=== PATIENT | male | born 1940 | race Two or more races ===

== ENCOUNTER → 2024-03-28 | Outpatient (CLI) | payer MEDICARE, SELFPAY ==
[2024-03-28 12:04] LABS: Collection Type, Urine Clean Catch; Squamous Epithelial Cell,Urine 0 /hpf (0-5)
[2024-03-28 12:15] LABS: Basophils % (Auto) 1 % (0-2.5); Eosinophils # (Auto) 0.2 Thou/mm3 (0.0-0.5); Eosinophils % (Auto) 2 % (0-10); Hematocrit 42.7 % (41.0-53.0); Hemoglobin 14.1 g/dL (13.5-16.0); Immature Granulocytes % (Auto) 0 % (0-0); Immature Granulocytes Auto 0.03 Thou/mm3 (0.00-0.00); Lymphocytes # (Auto) 1.3 Thou/mm3 (1.0-4.8); Lymphocytes % (Auto) 18 % (10-50); Mean Corpuscular Hemoglobin 30.3 pg (25.0-35.0); Mean Corpuscular Volume 92 fL (80-100); Monocytes # (Auto) 0.7 Thou/mm3 (0.0-0.8); Monocytes % (Auto) 10 % (0-12); Neutrophils # (Auto) 4.8 Thou/mm3 (1.8-7.7); Neutrophils % (Auto) 69 % (37-80); Nucleated Red Blood Cell % 0 /100 WBC (0); Platelet Count 290 Thou/mm3 (140-440); RDW Standard Deviation 47.8 fL (35.1-43.9); Red Blood Count 4.65 Miln/mm3 (4.50-5.90)
[2024-03-28 12:31] LABS: Bilirubin,Urine Negative (Negative); Blood,Urine Negative (Negative); Clarity,Urine Clear (Clear/Hazy); Color,Urine Lt-Yellow (Lt Yel-Yel); Glucose, Urine Negative (Negative); Ketones,Urine Negative (Negative); Leukocyte Esterase,Urine Negative (Negative); Nitrite,Urine Negative (Negative); Protein,Urine Negative (Neg - Trace); RBC,Urine 2 /hpf (0-3); Specific Gravity,Urine 1.018 (1.001-1.035); Urobilinogen,Urine Negative mg/dL (0.0-1.0); WBC,Urine < 1 /hpf (0-5)
[2024-03-28 12:48] LABS: Alanine Aminotransferase 15 U/L (10-49); Albumin, Serum 4.3 gm/dL (3.4-4.8); Albumin/Globulin Ratio 1.7 (1.2-2.2); Alkaline Phosphatase 63 U/L (46-116); Anion Gap 11 (7-16); Aspartate Amino Transferase 10 U/L (0-34); BUN/Creatinine Ratio 13 Ratio (12-20); Bilirubin,Total 0.5 mg/dL (0.3-1.2); Blood Urea Nitrogen 18 mg/dL (9-23); Calcium 9.9 mg/dL (8.3-10.6); Calcium (Corrected) 9.9 mg/dL (8.5-10.1); Carbon Dioxide 26.8 mMol/L (20.0-31.0); Cardiac Risk Estimate 2.5 RATIO (4.0-6.7); Chloride 102 mMol/L (98-107); Cholesterol 98 mg/dL (132-200); Creatinine (Component) 1.4 mg/dL (0.6-1.3); Globulin 2.5 gm/dL (2.3-3.5); Glucose 107 mg/dL (74-106); HDL Cholesterol 40 mg/dL (40-60); LDL Cholesterol,Calculated 12 mg/dL (0-130); Osmolality,Calculated 281 (275-295); Potassium 4.4 mMol/L (3.4-5.1); Sodium 140 mMol/L (136-145); Thyroid Stimulating Hormone 2.78 uIU/mL (0.55-4.78); Total Protein 6.8 gm/dL (5.7-8.2); Triglycerides 232 mg/dL (30-150); Uric Acid 6.1 mg/dL (3.7-9.2); eGFR 49 See Note
== END | disposition home or self-care (01) ==
PROVIDERS: PCP Family Medicine; Referring Provider Family Medicine; Visit Provider Family Medicine
DX: Z00.00 Encounter for general adult medical examination without abnormal findings (principal); I12.9 Hypertensive chronic kidney disease with stage 1 through stage 4 chronic kidney disease, or unspecified chronic kidney disease; N18.31 Chronic kidney disease, stage 3a; I25.10 Atherosclerotic heart disease of native coronary artery without angina pectoris; E78.2 Mixed hyperlipidemia; E79.0 Hyperuricemia without signs of inflammatory arthritis and tophaceous disease
CPT/HCPCS: 36415; 80053; 80061; 81001; 84443; 84550; 85025

== ENCOUNTER 2024-05-02 13:15 | Outpatient (AMB) | payer MEDICARE, BC, SELFPAY ==
[2024-05-02 13:53] VITALS: BP 124/72; PULSE 89; RESP 17; TEMP 36.8; O2SAT 93; BMI 29.9
--- NOTE | 2024-05-02 13:53 | PD.ORTHCLVIS ---
Vital signs 05/02/24 13:53 05/02/24 14:05 Height 1.7 m Height Method Stated Weight 86.863 kg Weight Measurement Method Standing Scale BMI 29.9 BP 124/72 124/72 Blood Pressure Source Automatic Cuff Blood Pressure Location Left Upper Arm Position Sitting Respiration 17 17 Pulse 89 89 Pulse Source Monitor Temp 98.3 F 98.3 F Temp Source Temporal Artery Scan Pulse Oximetry (%) 93 L 93 L Oxygen Delivery Method Room Air Med/Allergies Allergies & Medications Allergies naproxen Allergy (Mild, Verified 05/02/24 13:55) LIGHTHEADEDNESS, SWEATY, WEIRD-FEELINGS Assessment and Plan Advanced Care Planning Discussion Advance care planning discussed with:: patient Office Procedures GNS Level of Care Nursing/Assessment Patient Status: Initial/New Patient Nursing Assessment/Reassesment: Medication Reconciliation, Update PMH in EMR and Vital Signs Coordination of Care: Complex Care and Chronic Disease 1-5, Education Complex Pt/Fam, Consent,records obtained, informed consent, 1 Ins Authorization, Lab and Imaging orders, Results/Orders obtained and Staff clarify orders New Patient Charge New Patient Point Assignment: 1124 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 ([id number]) MA Intake Visit Data Collection New Patient or Established: New Patient (never been to [facility]) Seen by Clinical Staff ONLY (RN/MA): No Delimer Required: No PCP or OBGYN visit in last 3 months: Yes Hx Now: No Do You Feel Safe at Home: Yes Authorities Contacted: N/A Questionairres Past Medical History Past Medical History Have you ever been diagnosed with any of the following: Neurological Problems Cerebrovascular Accident (CVA): No Transient Ischemic Attacks (TIA): No Dementia: No Alzheimer's Disease: No Parkinson's Disease: No Brain Tumor: No Meningitis: No Seizures: No Epilepsy: No Multiple Sclerosis: No Cerebral Palsy: No Amyotrophic Lateral Sclerosis (ALS/Yue Gehrig's): No Guillain-Starke Syndrome: No Spina Bifida: No Paralysis: No Peripheral Neuropathy: No Zabala's Palsy: No Subdural Hematoma: No Migraine: No Head Trauma: No Spinal Cord Injury: No Traumatic Brain Injury: No Cardiology Problems Myocardial Infarction: No Cardiac Arrhythmia: Yes Atrial Fibrillation: No Angina: No Heart Murmur: No Coronary Artery Disease: No Atherosclerotic Heart Disease: Yes Peripheral Vascular Disease: No Hypercholesterolemia: Yes Aneurysm: No Congestive Heart Failure: No Congenital Heart Disease: No Valvular Heart Disease: No Rheumatic Fever: No Cardiomyopathy: No Edema: No Pericarditis: No Cellulitis: No Deep Vein Thrombosis: No Hypertension: Yes Hypotension: No Varicose Veins: No Respiratory Problems Chronic Obstructive Pulmonary Disease (COPD): No Asthma: No Bronchitis: No Emphysema: No Pneumonia: No Pulmonary Fibrosis: No Tuberculosis: No Pulmonary Embolism: No Pulmonary Edema: No Sleep Apnea: No Smoking: No Smoking Cessation Counseling: No Smoking Exposure: No Stomache/Intestinal Problems Hepatitis: No Cirrhosis: No Pancreatitis: No Celiac Disease: No Golden's Esophagus: No Colitis: No Ulcerative Colitis: No Diverticulitis: No Diverticulosis: No Ulcer: No Irritable Bowel: No Crohn's Disease: No Obstructive Bowel: No Hiatal Hernia: No Hemorrhoids: Yes Obesity: Yes Genital/Urinary Problems Renal Disease: No Kidney Stones: No Polycystic Kidney Disease: No Neurogenic Bladder: No Inguinal Hernia: No Dialysis: No Benign Prostatic Hyperplasia: Yes (pt denies) Reproductive Problems Fibroids: No Genital Herpes: No Gonorrhea: No Syphilis: No Testicular Cancer: No Musculoskeletal Problems Muscular Dystrophy: No Myasthenia Gravis: No Marfan's Syndrome: No Arthritis: Yes Rheumatoid Arthritis: No Osteoporosis: No Degenerative Disk Disease: No Gout: No Scoliosis: No Carpal Tunnel Syndrome: No Fibromyalgia: No Fractures: No Degenerative Joint Disease: No Osteomyelitis: No Poliovirus: No Head,Eye,Nose,Throat Problems Cataracts: Yes (ronald. eyes) Glaucoma: No Blind: No Retinal Detachment: No Macular Degeneration: No Chronic Ear Infections: No Deafness: No Eye Prosthesis: No Endocrine Problems Diabetes Mellitus Type 1: No Diabetes Mellitus Type 2: No Hypoglycemia: No Braulio's Syndrome: No [place]'s Disease: No Hyperthyroidism: No Hypothyroidism: No Parathyroid Disease: No Pituitary Disease: No Systemic Lupus Erythematosus: No Syndrome of Inappropriate Antidiuretic Hormone: No Adrenal Disease: No Graves' Disease: No Blood Problems Anemia: No Leukemia: No Hemophilia: No Thalassemia: No Sickle Cell Disease: No Clotting Problems: No Psychologic Problems Schizophrenia: No Recreational Drug Use: No Bipolar Disorder: No Depression: No Anxiety: Yes Behavior Problems: No Self-Mutilation: No Attention Deficit Disorder: No Attention Deficit Hyperactivity Disorder: No Depression: No Post Traumatic Stress Disorder: No Eating Disorder: No Other Problems Hospitalization: No Down Syndrome: No Autism: No Developmental Delay: No Shingles: No Falls: No Blood Transfusions: No Anesthesia Reactions: No Organ Transplant: No Chemotherapy: No Radiation Therapy: No Hyperbaric Therapy: No MRSA: No VRSA: No Vancomycin-Resistant Enterococci: No Chicken Pox: Yes Measles: Yes Mumps: Yes Pertussis: Yes Clostridium Difficile: No Cancer: No Surgical History Carotid Endarterectomy: No Coronary Artery Bypass Graft: No Valve Replacement: No Pacemaker: Yes Thyroidectomy: No Subjective Visit Visit for: new patient and knee (RT KNEE PAIN ) Immunization / Flu Flu Vaccine in the Last 12 Months: Yes Flu Vaccine Exclusion Criteria: Already Received Pain Pain level (0-10): 6 Pain duration: 1 MONTH Pain location: outside (lateral) Pain timing: increases with activity (WALKING ) Ambulatory data Ambulatory device: none Treatments Number of previous injections: 1 (2 MONTH AGO) Improvement with previous injections: No Number of Physical Therapy sessions: 0 Improvement with NSAIDS: n/a Review of Systems Review of Systems: All systems negative unless otherwise noted in HPI.
--- NOTE | 2024-05-02 13:57 | XR_ITS ---
Examination: Lumbar spine 3 views Technique one AP lateral coned lateral lower lumbar spine 3 views Exam date and time: 27/06/2024 1419 hours INDICATIONS: Lower back pain beginning one week ago. FINDINGS: Adequate alignment lumbar vertebral bodies on the lateral view Advanced diffuse lumbar degenerative disc disease No lumbar fracture Prominent lumbar spondylosis Prominent facet arthropathy IMPRESSION: Advanced diffuse lumbar degenerative disc disease with significant spinal stenosis
--- NOTE | 2024-05-02 14:03 | PD.ORTHCLVIS ---
Vital signs 05/02/24 13:53 Height 1.7 m Height Method Stated Weight 86.863 kg Weight Measurement Method Standing Scale BMI 29.9 BP 124/72 Blood Pressure Source Automatic Cuff Blood Pressure Location Left Upper Arm Position Sitting Respiration 17 Pulse 89 Pulse Source Monitor Temp 98.3 F Temp Source Temporal Artery Scan Pulse Oximetry (%) 93 L Oxygen Delivery Method Room Air Med/Allergies Allergies & Medications Allergies naproxen Allergy (Mild, Verified 05/02/24 13:55) LIGHTHEADEDNESS, SWEATY, WEIRD-FEELINGS Exam Exam Patient is in no acute distress and is cooperative with the examination today. Breathing is nonlabored. In no respiratory distress. Patient has no paraspinal tenderness. Spinal deformity cannot be appreciated. The gait of the patient is nonantalgic Bilateral extremities were evaluated and demonstrates sensation intact to light touch. Palpable pedal pulses are present. No significant edema is present. Bilateral knees were examined and the patient has full strength and range of motion.. The left hip was examined. Patient was able to flex to 90 degrees, adduct to 30 degrees, abduct to 40 degrees, internally rotate to 20 degrees, and externally rotate to 20 degrees. Patient has a negative logroll. Stinchfield is negative. The patient is nontender diffusely to touch. The right hip was examined. Patient was able to flex to 90 degrees, adduct to 30 degrees, abduct to 40 degrees, internally rotate to 20 degrees, and externally rotate to 20 degrees. Patient has a negative logroll. The stinchfield is negative. Right knee is nontender to palpation. Range of motion is 0 to 110 degrees Right knee and hip films were reviewed. This is [facility] This demonstrates preserved hip and knee joint spaces. There is no osteophytes. He does have calcified vessels. Assessment and Plan Problem List (1) Vascular claudication: Status: Acute Plan: Patient is an 84-year-old male who describes symptoms of vascular claudication with bilateral leg pain worse on the right. We discussed with him his symptoms are most consistent with vascular claudication versus spinal stenosis. We will get an MRI and x-rays to evaluate the spine. Fortunately his hip and knee look great. The hip and knee exam are also quite benign. 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 ([id number]) Questionairres Past Medical History Past Medical History Have you ever been diagnosed with any of the following: Neurological Problems Cerebrovascular Accident (CVA): No Transient Ischemic Attacks (TIA): No Dementia: No Alzheimer's Disease: No Parkinson's Disease: No Brain Tumor: No Meningitis: No Seizures: No Epilepsy: No Multiple Sclerosis: No Cerebral Palsy: No Amyotrophic Lateral Sclerosis (ALS/Yue Gehrig's): No Guillain-Kenvil Syndrome: No Spina Bifida: No Paralysis: No Peripheral Neuropathy: No Zabala's Palsy: No Subdural Hematoma: No Migraine: No Head Trauma: No Spinal Cord Injury: No Traumatic Brain Injury: No Cardiology Problems Myocardial Infarction: No Cardiac Arrhythmia: Yes Atrial Fibrillation: No Angina: No Heart Murmur: No Coronary Artery Disease: No Atherosclerotic Heart Disease: Yes Peripheral Vascular Disease: No Hypercholesterolemia: Yes Aneurysm: No Congestive Heart Failure: No Congenital Heart Disease: No Valvular Heart Disease: No Rheumatic Fever: No Cardiomyopathy: No Edema: No Pericarditis: No Cellulitis: No Deep Vein Thrombosis: No Hypertension: Yes Hypotension: No Varicose Veins: No Respiratory Problems Chronic Obstructive Pulmonary Disease (COPD): No Asthma: No Bronchitis: No Emphysema: No Pneumonia: No Pulmonary Fibrosis: No Tuberculosis: No Pulmonary Embolism: No Pulmonary Edema: No Sleep Apnea: No Smoking: No Smoking Cessation Counseling: No Smoking Exposure: No Stomache/Intestinal Problems Hepatitis: No Cirrhosis: No Pancreatitis: No Celiac Disease: No Golden's Esophagus: No Colitis: No Ulcerative Colitis: No Diverticulitis: No Diverticulosis: No Ulcer: No Irritable Bowel: No Crohn's Disease: No Obstructive Bowel: No Hiatal Hernia: No Hemorrhoids: Yes Obesity: Yes Genital/Urinary Problems Renal Disease: No Kidney Stones: No Polycystic Kidney Disease: No Neurogenic Bladder: No Inguinal Hernia: No Dialysis: No Benign Prostatic Hyperplasia: Yes (pt denies) Reproductive Problems Fibroids: No Genital Herpes: No Gonorrhea: No Syphilis: No Testicular Cancer: No Musculoskeletal Problems Muscular Dystrophy: No Myasthenia Gravis: No Marfan's Syndrome: No Arthritis: Yes Rheumatoid Arthritis: No Osteoporosis: No Degenerative Disk Disease: No Gout: No Scoliosis: No Carpal Tunnel Syndrome: No Fibromyalgia: No Fractures: No Degenerative Joint Disease: No Osteomyelitis: No Poliovirus: No Head,Eye,Nose,Throat Problems Cataracts: Yes (ronald. eyes) Glaucoma: No Blind: No Retinal Detachment: No Macular Degeneration: No Chronic Ear Infections: No Deafness: No Eye Prosthesis: No Endocrine Problems Diabetes Mellitus Type 1: No Diabetes Mellitus Type 2: No Hypoglycemia: No Braulio's Syndrome: No Kwabena's Disease: No Hyperthyroidism: No Hypothyroidism: No Parathyroid Disease: No Pituitary Disease: No Systemic Lupus Erythematosus: No Syndrome of Inappropriate Antidiuretic Hormone: No Adrenal Disease: No Graves' Disease: No Blood Problems Anemia: No Leukemia: No Hemophilia: No Thalassemia: No Sickle Cell Disease: No Clotting Problems: No Psychologic Problems Schizophrenia: No Recreational Drug Use: No Bipolar Disorder: No Depression: No Anxiety: Yes Behavior Problems: No Self-Mutilation: No Attention Deficit Disorder: No Attention Deficit Hyperactivity Disorder: No Depression: No Post Traumatic Stress Disorder: No Eating Disorder: No Other Problems Hospitalization: No Down Syndrome: No Autism: No Developmental Delay: No Shingles: No Falls: No Blood Transfusions: No Anesthesia Reactions: No Organ Transplant: No Chemotherapy: No Radiation Therapy: No Hyperbaric Therapy: No MRSA: No VRSA: No Vancomycin-Resistant Enterococci: No Chicken Pox: Yes Measles: Yes Mumps: Yes Pertussis: Yes Clostridium Difficile: No Cancer: No Surgical History Carotid Endarterectomy: No Coronary Artery Bypass Graft: No Valve Replacement: No Pacemaker: Yes Thyroidectomy: No Subjective Immunization / Flu Flu Vaccine in the Last 12 Months: Yes Flu Vaccine Exclusion Criteria: Already Received History of Present Illness Chief complaint: Right buttocks and thigh pain Pollo is a pleasant 84-year-old male with pain that starts in his buttocks and radiates down to the thigh and medial aspect of the knee. He had a cortisone injection once before. He reports the knee pain is actually increased quite a bit. A lot of the pain is in the buttocks and side. He describes it as a dull pain. He also reports a feeling of coldness in both thighs. Review of Systems Review of Systems: All systems negative unless otherwise noted in HPI.
[2024-05-02 14:05] VITALS: BP 124/72; PULSE 89; RESP 17; TEMP 36.8; O2SAT 93
== END 2024-05-02 14:04 | disposition home or self-care (01) ==
PROVIDERS: PCP Family Medicine; Referring Provider Family Medicine; Supervising Provider Orthopaedic Surgery Adult Reconstructive Orthopaedic Surgery; Visit Provider Orthopaedic Surgery Adult Reconstructive Orthopaedic Surgery
DX: I73.9 Peripheral vascular disease, unspecified (principal); M79.605 Pain in left leg; M79.604 Pain in right leg; M51.369 Other intervertebral disc degeneration, lumbar region without mention of lumbar back pain or lower extremity pain; M48.061 Spinal stenosis, lumbar region without neurogenic claudication; I10 Essential (primary) hypertension; E78.00 Pure hypercholesterolemia, unspecified
CPT/HCPCS: 72100; 99204; G0463

== ENCOUNTER → 2024-06-03 | Outpatient (CLI) | payer MEDICARE, BC, SELFPAY | END | disposition home or self-care (01) | LOC: SMRI 13:28 | PROVIDERS: PCP Family Medicine; Referring Provider Orthopaedic Surgery Adult Reconstructive Orthopaedic Surgery; Visit Provider Orthopaedic Surgery Adult Reconstructive Orthopaedic Surgery | DX: Z53.8 Procedure and treatment not carried out for other reasons (principal) | CPT/HCPCS: 73721 ==

== ENCOUNTER 2024-06-06 14:53 | Outpatient (AMB) | payer MEDICARE, BC, SELFPAY ==
[2024-06-06 15:02] VITALS: BP 130/75; PULSE 66; RESP 17; TEMP 36.3; O2SAT 95; BMI 30.1
--- NOTE | 2024-06-06 15:02 | PD.ORTHCLVIS ---
Vital signs 06/06/24 15:02 Height 1.7 m Height Method Stated Weight 87.231 kg Weight Measurement Method Standing Scale BMI 30.1 BP 130/75 Blood Pressure Source Automatic Cuff Blood Pressure Location Right Upper Arm Position Sitting Respiration 17 Pulse 66 Pulse Source Monitor Temp 97.3 F Temp Source Temporal Artery Scan Pulse Oximetry (%) 95 Oxygen Delivery Method Room Air Med/Allergies Allergies & Medications Allergies naproxen Allergy (Mild, Verified 06/06/24 15:03) LIGHTHEADEDNESS, SWEATY, WEIRD-FEELINGS Medication Reconciliation tamsulosin 0.4 mg capsule 0.4 mg PO QDAY Prostate ##90 11/06/13 [History Confirmed 06/06/24] clopidogrel 75 mg tablet 75 mg PO DAILY 07/19/17 [History Confirmed 06/06/24] Held on 04/14/23. Instructions: Resume on 04/25/23. Hold for 10 days. evolocumab 140 mg/mL subcutaneous syringe (Repatha Syringe) 420 mg subcut QMONTH 07/19/17 [History Confirmed 06/06/24] allopurinol 100 mg tablet 100 mg PO QDAY 09/06/20 [History Confirmed 06/06/24] olmesartan 40 mg-amlodipine 5 mg-hydrochlorothiazide 12.5 mg tablet (Tribenzor) 1 tab PO QDAY 09/06/20 [History Confirmed 06/06/24] magnesium oxide 400 mg PO QDAY 12/09/22 [History Confirmed 06/06/24] hydroxyzine HCl 10 mg tablet 10 mg PO 1XD PRN Insomnia 04/11/23 [History Confirmed 06/06/24] pantoprazole 40 mg tablet,delayed release 40 mg PO DAILY 04/11/23 [History Confirmed 06/06/24] gabapentin 100 mg capsule 100 mg PO TID #60 caps 05/02/24 [Rx Confirmed 06/06/24] Exam Exam Patient is in no acute distress and is cooperative with the examination today. Breathing is nonlabored. In no respiratory distress. Patient has no paraspinal tenderness. Spinal deformity cannot be appreciated. The gait of the patient is nonantalgic Bilateral extremities were evaluated and demonstrates sensation intact to light touch. Palpable pedal pulses are present. No significant edema is present. Bilateral knees were examined and the patient has full strength and range of motion.. The left hip was examined. Patient was able to flex to 90 degrees, adduct to 30 degrees, abduct to 40 degrees, internally rotate to 20 degrees, and externally rotate to 20 degrees. Patient has a negative logroll. Stinchfield is negative. The patient is nontender diffusely to touch. The right hip was examined. Patient was able to flex to 90 degrees, adduct to 30 degrees, abduct to 40 degrees, internally rotate to 20 degrees, and externally rotate to 20 degrees. Patient has a negative logroll. The stinchfield is negative. Right knee is nontender to palpation. Range of motion is 0 to 110 degrees Right knee and hip films were reviewed. This is from [facility]. This demonstrates preserved hip and knee joint spaces. There is no osteophytes. He does have calcified vessels. We also looked at his spine films which demonstrates very calcified aorta. In addition, there are multilevel degenerative changes Assessment and Plan Problem List (1) Vascular claudication: Status: Acute Plan: Patient is an 84-year-old male who describes symptoms of vascular claudication with bilateral leg pain worse on the right. I do think he has vascular claudication versus spinal stenosis. We ordered an MRI but he currently needs to get clearance for his pacemaker before the MRI. I recommend workup and referral to a vascular surgeon for his vascular claudication versus a spine physician depending on what the MRI shows. He cannot get his MRI Yet due to issues with the pacemaker and questions about his compatibility. Advanced Care Planning Discussion Advance care planning discussed with:: patient Office Procedures GNS Level of Care Nursing/Assessment Patient Status: Established Patient Nursing Assessment/Reassesment: Medication Reconciliation, Update PMH in EMR and Vital Signs Coordination of Care: Complex Care and Chronic Disease 1-5, Consent,records obtained, informed consent, Education Simp Pt/Fam, Results/Orders obtained and Staff clarify orders Established Patient Charge Established Patient Point Assignment: 90 Established Patient Point Charge: EP Level 3 (80-115) MA Intake Visit Data Collection New Patient or Established: Established Patient (seen at [facility] within 3 years) Reason for Visit:: RT KNEE/HIP PAIN Seen by Clinical Staff ONLY (RN/MA): No 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 PCP or OBGYN visit in last 3 months: Yes Hx Now: No Do You Feel Safe at Home: Yes Authorities Contacted: N/A Questionairres Past Medical History Past Medical History Have you ever been diagnosed with any of the following: Neurological Problems Cerebrovascular Accident (CVA): No Transient Ischemic Attacks (TIA): No Dementia: No Alzheimer's Disease: No Parkinson's Disease: No Brain Tumor: No Meningitis: No Seizures: No Epilepsy: No Multiple Sclerosis: No Cerebral Palsy: No Amyotrophic Lateral Sclerosis (ALS/Yue Gehrig's): No Guillain-Kent Syndrome: No Spina Bifida: No Paralysis: No Peripheral Neuropathy: No Zabala's Palsy: No Subdural Hematoma: No Migraine: No Head Trauma: No Spinal Cord Injury: No Traumatic Brain Injury: No Cardiology Problems Myocardial Infarction: No Cardiac Arrhythmia: Yes Atrial Fibrillation: No Angina: No Heart Murmur: No Coronary Artery Disease: No Atherosclerotic Heart Disease: Yes Peripheral Vascular Disease: No Hypercholesterolemia: Yes Aneurysm: No Congestive Heart Failure: No Congenital Heart Disease: No Valvular Heart Disease: No Rheumatic Fever: No Cardiomyopathy: No Edema: No Pericarditis: No Cellulitis: No Deep Vein Thrombosis: No Hypertension: Yes Hypotension: No Varicose Veins: No Respiratory Problems Chronic Obstructive Pulmonary Disease (COPD): No Asthma: No Bronchitis: No Emphysema: No Pneumonia: No Pulmonary Fibrosis: No Tuberculosis: No Pulmonary Embolism: No Pulmonary Edema: No Sleep Apnea: No Smoking: No Smoking Cessation Counseling: No Smoking Exposure: No Stomache/Intestinal Problems Hepatitis: No Cirrhosis: No Pancreatitis: No Celiac Disease: No Golden's Esophagus: No Colitis: No Ulcerative Colitis: No Diverticulitis: No Diverticulosis: No Ulcer: No Irritable Bowel: No Crohn's Disease: No Obstructive Bowel: No Hiatal Hernia: No Hemorrhoids: Yes Obesity: Yes Genital/Urinary Problems Renal Disease: No Kidney Stones: No Polycystic Kidney Disease: No Neurogenic Bladder: No Inguinal Hernia: No Dialysis: No Benign Prostatic Hyperplasia: Yes (pt denies) Reproductive Problems Fibroids: No Genital Herpes: No Gonorrhea: No Syphilis: No Testicular Cancer: No Musculoskeletal Problems Muscular Dystrophy: No Myasthenia Gravis: No Marfan's Syndrome: No Arthritis: Yes Rheumatoid Arthritis: No Osteoporosis: No Degenerative Disk Disease: No Gout: No Scoliosis: No Carpal Tunnel Syndrome: No Fibromyalgia: No Fractures: No Degenerative Joint Disease: No Osteomyelitis: No Poliovirus: No Head,Eye,Nose,Throat Problems Cataracts: Yes (ornald. eyes) Glaucoma: No Blind: No Retinal Detachment: No Macular Degeneration: No Chronic Ear Infections: No Deafness: No Eye Prosthesis: No Endocrine Problems Diabetes Mellitus Type 1: No Diabetes Mellitus Type 2: No Hypoglycemia: No Braulio's Syndrome: No Kwabena's Disease: No Hyperthyroidism: No Hypothyroidism: No Parathyroid Disease: No Pituitary Disease: No Systemic Lupus Erythematosus: No Syndrome of Inappropriate Antidiuretic Hormone: No Adrenal Disease: No Graves' Disease: No Blood Problems Anemia: No Leukemia: No Hemophilia: No Thalassemia: No Sickle Cell Disease: No Clotting Problems: No Psychologic Problems Schizophrenia: No Recreational Drug Use: No Bipolar Disorder: No Depression: No Anxiety: Yes Behavior Problems: No Self-Mutilation: No Attention Deficit Disorder: No Attention Deficit Hyperactivity Disorder: No Depression: No Post Traumatic Stress Disorder: No Eating Disorder: No Other Problems Hospitalization: No Down Syndrome: No Autism: No Developmental Delay: No Shingles: No Falls: No Blood Transfusions: No Anesthesia Reactions: No Organ Transplant: No Chemotherapy: No Radiation Therapy: No Hyperbaric Therapy: No MRSA: No VRSA: No Vancomycin-Resistant Enterococci: No Chicken Pox: Yes Measles: Yes Mumps: Yes Pertussis: Yes Clostridium Difficile: No Cancer: No Surgical History Carotid Endarterectomy: No Coronary Artery Bypass Graft: No Valve Replacement: No Pacemaker: Yes Thyroidectomy: No Subjective Visit Visit for: follow up visit, hip (RT HIP) and knee (RT KNEE ) Immunization / Flu Flu Vaccine in the Last 12 Months: Yes Flu Vaccine Exclusion Criteria: Already Received History of Present Illness Chief complaint: Right buttocks and thigh pain Pollo is a pleasant 84-year-old male with pain that starts in his buttocks and radiates down to the thigh and medial aspect of the knee. He had a cortisone injection once before. He reports the knee pain is actually increased quite a bit. A lot of the pain is in the buttocks and side. He describes it as a dull pain. He also reports a feeling of coldness in both thighs. He did not get an MRI because of his pacemaker Personal History Red flag PMH: none Pain Pain level (0-10): 6 Pain duration: 2 MONTHS Pain location: groin and anterior Pain quality: tingling Pain timing: night and increases with activity Associated signs & symptoms: none Ambulatory data Ambulatory device: none Walking distance (blocks): 0 Walking distance (minutes): 0 Treatments Number of previous injections: 1 Improvement with previous injections: No Number of Physical Therapy sessions: 0 Improvement with NSAIDS: n/a Review of Systems Review of Systems: All systems negative unless otherwise noted in HPI.
== END 2024-06-06 15:11 | disposition home or self-care (01) ==
LOC: HODSRG 14:53
PROVIDERS: PCP Family Medicine; Referring Provider Family Medicine; Supervising Provider Orthopaedic Surgery Adult Reconstructive Orthopaedic Surgery; Visit Provider Orthopaedic Surgery Adult Reconstructive Orthopaedic Surgery
DX: I73.9 Peripheral vascular disease, unspecified (principal); Z95.0 Presence of cardiac pacemaker; I10 Essential (primary) hypertension; E78.00 Pure hypercholesterolemia, unspecified
CPT/HCPCS: 99213; G0463

== ENCOUNTER → 2024-06-27 | Outpatient (CLI) | payer MEDICARE, BC, SELFPAY ==
[2024-06-27 11:52] LABS: Albumin, Serum 4.2 gm/dL (3.4-4.8); Albumin/Globulin Ratio 1.6 (1.2-2.2); Alkaline Phosphatase 57 U/L (46-116); Anion Gap 10 (7-16); Aspartate Amino Transferase 15 U/L (0-34); BUN/Creatinine Ratio 10 Ratio (12-20); Bilirubin,Total 0.6 mg/dL (0.3-1.2); Blood Urea Nitrogen 13 mg/dL (9-23); Cardiac Risk Estimate 2.4 RATIO (4.0-6.7); Chloride 107 mMol/L (98-107); Cholesterol 90 mg/dL (132-200); Creatinine (Component) 1.3 mg/dL (0.6-1.3); Globulin 2.6 gm/dL (2.3-3.5); Glucose 121 mg/dL (74-106); HDL Cholesterol 38 mg/dL (40-60); Osmolality,Calculated 284 (275-295); Sodium 142 mMol/L (136-145); Total Protein 6.8 gm/dL (5.7-8.2); Uric Acid 5.6 mg/dL (3.7-9.2); eGFR 54 See Note
[2024-06-27 12:48] LABS: Alanine Aminotransferase 10 U/L (10-49); LDL Cholesterol,Calculated 11 mg/dL (0-130); Triglycerides 203 mg/dL (30-150)
== END | disposition home or self-care (01) ==
LOC: COPL 10:31
PROVIDERS: PCP Family Medicine; Referring Provider Family Medicine; Visit Provider Internal Medicine Cardiovascular Disease
DX: E78.2 Mixed hyperlipidemia (principal); I10 Essential (primary) hypertension; I25.10 Atherosclerotic heart disease of native coronary artery without angina pectoris
CPT/HCPCS: 36415; 80053; 80061; 84550

== ENCOUNTER 2024-09-08 06:36 | Day surgery (SDC) | payer MEDICARE, BC, SELFPAY ==
--- NOTE | 2024-09-07 07:00 | EKG_ITS ---
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
[2024-09-07 13:11] LABS: Basophils # (Auto) 0.0 Thou/mm3 (0.0-0.2); Basophils % (Auto) 0 % (0-2.5); Eosinophils # (Auto) 0.2 Thou/mm3 (0.0-0.5); Eosinophils % (Auto) 2 % (0-10); Hematocrit 40.8 % (41.0-53.0); Hemoglobin 13.6 g/dL (13.5-16.0); Immature Granulocytes Auto 0.02 Thou/mm3 (0.00-0.00); Lymphocytes # (Auto) 1.1 Thou/mm3 (1.0-4.8); Lymphocytes % (Auto) 16 % (10-50); Mean Corpuscular HGB Conc 33.3 g/dl (31.0-37.0); Mean Corpuscular Hemoglobin 31.5 pg (25.0-35.0); Mean Corpuscular Volume 94 fL (80-100); Monocytes # (Auto) 0.8 Thou/mm3 (0.0-0.8); Monocytes % (Auto) 12 % (0-12); Neutrophils # (Auto) 4.9 Thou/mm3 (1.8-7.7); Neutrophils % (Auto) 70 % (37-80); Nucleated Red Blood Cell # 0.00 Thou/mm3 (0.00-0.00); Nucleated Red Blood Cell % 0 /100 WBC (0); Platelet Count 261 Thou/mm3 (140-440); RDW Standard Deviation 49.9 fL (35.1-43.9); Red Blood Count 4.32 Miln/mm3 (4.50-5.90); White Blood Count 7.0 Thou/mm3 (3.8-10.6)
[2024-09-07 13:18] LABS: INR 1.0 (0.9-1.3); Partial Thromboplastin Time 29.3 Seconds (22.0-36.0); Prothrombin Time 10.6 Seconds (9.0-12.2)
[2024-09-07 13:22] LABS: Anion Gap 6 (7-16); BUN/Creatinine Ratio 9 Ratio (12-20); Blood Urea Nitrogen 15 mg/dL (9-23); Calcium 9.0 mg/dL (8.3-10.6); Carbon Dioxide 26.9 mMol/L (20.0-31.0); Chloride 107 mMol/L (98-107); Creatinine (Component) 1.6 mg/dL (0.6-1.3); Glucose 101 mg/dL (74-106); Osmolality,Calculated 280 (275-295); Potassium 4.5 mMol/L (3.4-5.1); Sodium 140 mMol/L (136-145); eGFR 42 See Note
[2024-09-08] VITALS (12 sets, daily range): BP systolic 121–171; BP diastolic 33–84; PULSE 60–64; RESP 12–19; TEMP 36.2; O2SAT 93–97; BMI 31.6
--- NOTE | 2024-09-08 07:24 | SUR.PREOP ---
Patient expressed gratitude for prayer before heir procedure.
[2024-09-08 09:43] LABS: ACT (CATH LAB ONLY) 296.0 Seconds (89-169)
--- NOTE | 2024-09-08 09:47 | ESOP_ITS ---
RE: JON DURON : 1940 DATE OF OPERATION: 09/08/2024 PROCEDURES PERFORMED: 1. Diagnostic left cardiac catheterization, selective coronary angiogram, and left ventricular angiogram, CPT 21851. 2. PCI (percutaneous coronary intervention), PTCA and stent placement of the left circumflex artery posterolateral branch with placement of drug-eluting stent 2.75 x 26 mm Gary Medtronic stent. Pre-procedure stenosis was 90%, post-procedure stenosis 0%. Pre- procedure KARIE flow 3, post-procedure KARIE flow 3. CPT 20207 3. Conscious sedation for 30-minute duration. HISTORY AND INDICATIONS: The patient is an 84-year-old male with a past medical history of hypertension, CAD, stent placement in the left anterior descending artery, and pacemaker implantation. He has been having recurrent shortness of breath on exertion and a cardiac stress test and nuclear scan showed inferolateral ischemia. Hence coronary angiogram was recommended to assess if the patient is a candidate for coronary intervention and revascularization. DESCRIPTION OF PROCEDURE: The patient was brought to cardiac catheterization laboratory where he was given 2 mg Versed and 50 mcg of fentanyl for sedation. Right radial approach was taken. The right radial artery was cannulated with a micropuncture technique and a 6-Emirati Glidesheath was introduced. Selective diagnostic right and left coronary angiogram, left cardiac catheterization and LV angiogram performed with a 5-Emirati sheath for the diagnostic catheter. A radial cocktail was given during the procedure. Diagnostic procedure showed following findings: Left ventricular pressure is 110/5, aortic pressure 110/70. No gradient across the aortic valve. Left ventricular angiogram showed normal left ventricular wall motion with an ejection fraction of 60%. Coronary angiogram shows the following findings: Right coronary artery is dominant and appears normal. PDA and posterolateral branch are normal. Left coronary system: Left main coronary artery is normal. Left anterior descending artery showed stent in the proximal LAD, widely patent. The left circumflex gives off small obtuse marginal branch and large posterolateral branches. The second large posterolateral branch showed 90% stenosis in a long lesion. Culprit lesion was found and PCI with stent placement was recommended because of symptomatic CAD with an abnormal nuclear scan. Intervention details as follows: The patient was given an additional 3000 units of IV heparin. ACT was 296. An aspirin and Brilinta loading dose was given. 180 mg of Brilinta was given. We proceeded with a PCI. A 6-Emirati FL 3.5 guiding catheter was used to cannulate the left main coronary artery. A 0.014 Runthrough guidewire was used to cross the lesion successfully. Pre-dilation was performed with a 2.5 x 12 Medtronic balloon and subsequently a 2.75 x 26 mm Mico Medtronic drug- eluting stent was deployed successfully with an excellent angiographic result. Two inflations were performed at 12 atmospheric pressures. Final angiogram showed a widely patent circumflex artery and PL branch with excellent results. No residual stenosis. SUMMARY OF FINDINGS: 1. Single-vessel coronary artery disease with evidence of 90% stenosis LPL posterolateral branch of the circumflex, large vessel, underwent successful stent placement as described. 2. Widely patent stent in the left anterior descending artery. 3. Normal left ventricular function. RECOMMENDATIONS: The patient is recommended to continue medical management. Aspirin and Brilinta, dual antiplatelet drug therapy will be continued. DT: 08:38:09 TT: 09:02:00 Ref: [id number] - TID: [id number] [facility]
[2024-09-08] MEDS: MORPHINE SULF INJ 10 MG/ML VIAL 4 MG IVP (10:11)
== END 2024-09-08 12:30 | disposition home or self-care (01) ==
PROVIDERS: PCP Family Medicine; Referring Provider Internal Medicine Cardiovascular Disease; Visit Provider Internal Medicine Cardiovascular Disease
PROC: (CPT 93458; principal; 2024-09-08 07:30)
DX: I25.118 Atherosclerotic heart disease of native coronary artery with other forms of angina pectoris (principal); I10 Essential (primary) hypertension; Z95.0 Presence of cardiac pacemaker; Z95.5 Presence of coronary angioplasty implant and graft; Z01.810 Encounter for preprocedural cardiovascular examination; R06.02 Shortness of breath
CPT/HCPCS: 93458; C9600; 36415; 80048; 85025; 85347; 85610; 85730; 93005; 99152; 99153; A4649; A4699; C1725; C1769; C1874; C1887; C1894; J0168; J0461; J1643; J2250; J2270; J2310; J2371; J3010; J3490; Q9967; A9270

== ENCOUNTER → 2024-09-19 | Outpatient (CLI) | payer MEDICARE, BC, SELFPAY ==
[2024-09-19 10:46] LABS: Basophils # (Auto) 0.0 Thou/mm3 (0.0-0.2); Basophils % (Auto) 1 % (0-2.5); Eosinophils # (Auto) 0.2 Thou/mm3 (0.0-0.5); Eosinophils % (Auto) 2 % (0-10); Hematocrit 41.9 % (41.0-53.0); Hemoglobin 13.9 g/dL (13.5-16.0); Immature Granulocytes Auto 0.03 Thou/mm3 (0.00-0.00); Lymphocytes # (Auto) 1.0 Thou/mm3 (1.0-4.8); Lymphocytes % (Auto) 14 % (10-50); Mean Corpuscular HGB Conc 33.2 g/dl (31.0-37.0); Mean Corpuscular Hemoglobin 31.4 pg (25.0-35.0); Mean Corpuscular Volume 95 fL (80-100); Monocytes # (Auto) 0.8 Thou/mm3 (0.0-0.8); Monocytes % (Auto) 10 % (0-12); Neutrophils # (Auto) 5.5 Thou/mm3 (1.8-7.7); Neutrophils % (Auto) 73 % (37-80); Nucleated Red Blood Cell # 0.00 Thou/mm3 (0.00-0.00); Nucleated Red Blood Cell % 0 /100 WBC (0); Platelet Count 284 Thou/mm3 (140-440); RDW Standard Deviation 49.3 fL (35.1-43.9); Red Blood Count 4.43 Miln/mm3 (4.50-5.90); White Blood Count 7.5 Thou/mm3 (3.8-10.6)
[2024-09-19 11:00] LABS: Prostate Specific Antigen 2.46 ng/mL (0-4.00)
[2024-09-19 11:07] LABS: Alanine Aminotransferase 12 U/L (10-49); Albumin, Serum 4.2 gm/dL (3.4-4.8); Albumin/Globulin Ratio 1.8 (1.2-2.2); Alkaline Phosphatase 57 U/L (46-116); Anion Gap 12 (7-16); Aspartate Amino Transferase 15 U/L (0-34); BUN/Creatinine Ratio 12 Ratio (12-20); Bilirubin,Total 0.6 mg/dL (0.3-1.2); Blood Urea Nitrogen 17 mg/dL (9-23); Calcium 9.3 mg/dL (8.3-10.6); Calcium (Corrected) 9.3 mg/dL (8.5-10.1); Carbon Dioxide 25.2 mMol/L (20.0-31.0); Chloride 105 mMol/L (98-107); Creatinine (Component) 1.4 mg/dL (0.6-1.3); Globulin 2.4 gm/dL (2.3-3.5); Glucose 116 mg/dL (74-106); Osmolality,Calculated 285 (275-295); Potassium 4.5 mMol/L (3.4-5.1); Sodium 142 mMol/L (136-145); Thyroid Stimulating Hormone 4.96 uIU/mL (0.55-4.78); Total Protein 6.6 gm/dL (5.7-8.2); eGFR 49 See Note
[2024-09-19 12:46] LABS: Sed Rate (ESR) 36 mm/hr (0-20)
== END | disposition home or self-care (01) ==
LOC: COPL 09:56
PROVIDERS: PCP Family Medicine; Referring Provider Family Medicine; Visit Provider Family Medicine
DX: N40.1 Benign prostatic hyperplasia with lower urinary tract symptoms (principal); R53.83 Other fatigue; R39.12 Poor urinary stream; N18.31 Chronic kidney disease, stage 3a
CPT/HCPCS: 36415; 80053; 84153; 84443; 85025; 85652